=== PATIENT | female | born 1975 | race Caucasian/White ===

== ENCOUNTER → 2019-09-18 | Outpatient (CLI) | payer OTHER ==
[~2019-09-18] MED LIST: ACHYD1T PO; BIRTH CONTROL PO; CTLP20T PO; FEXO-14 PO; FEXO-45 PO; NITR-33 PO; NITR-65 PO; PHEN-640 PO; TMSL.4C PO; TRM50T PO
--- NOTE | 2019-09-18 11:10 | Diagnostic Imaging Report ---
EXAMINATION: Supine abdomen at 10:04 a.m. INDICATION: Left ureteral stone. FINDINGS: The previous exam of 09/22/2013 noted a few calcific densities overlying the inferior pole of the left kidney and a few linear irregular calcifications in the right upper quadrant. On this study the calcification of the right upper quadrant appeared similar to the prior exam. The calcifications overlying the left kidney may be somewhat larger in size. The largest of these calcifications now measures approximately 3.4 mm. Furthermore there is now a question of a 3 mm calcification lying just inferior to the left transverse process of L3. This could be within the left ureter. If further evaluation of this finding is desired, then CT would be recommended. No other pathological calcification is seen. There is some gas in both the large and small bowel in a nonspecific fashion. There is no evidence for bowel obstruction. As noted on the prior exam there is a fair amount of fecal material within the transverse colon and this does obscure both kidneys. The osseous structures are intact. The postsurgical changes involving the thoracolumbar spine seen previously are again evident. IMPRESSION: 1. The calcifications in the right upper quadrant and overlying the inferior pole of the left kidney seen previously are again evident. One of the calcifications overlying the inferior pole of the left kidney does seem larger. There is also now question of a calculus within the left ureter. Recommendations as above. 2. There is no acute abnormality noted otherwise. Dictated by: Dictated on workstation # [id number]
== END ==
LOC: RAD 09:46
PROVIDERS: ATTEND Urology
DX: N20.1 Calculus of ureter (principal); N28.89 Other specified disorders of kidney and ureter
CPT/HCPCS: 74018

== ENCOUNTER → 2019-09-28 | Outpatient (CLI) | payer OTHER ==
--- NOTE | 2019-09-28 16:32 | Diagnostic Imaging Report ---
REASON FOR EXAM: LT UPPER URETERAL AND RENAL STONES COMPARISON: 09/18/2019. TECHNIQUE: frontal supine view of the abdomen FINDINGS: There has been interval migration of the calculus within the left ureter which now appears to be in the distal ureter/UVJ. Previously visualized calculi within the left kidney appear more medial on today's exam, although this may be due to positioning. No evidence of bowel obstruction or large collections of free intraperitoneal air. A moderate amount of stool is seen in the colon. Fusion changes are noted in the thoracolumbar spine. IMPRESSION: 1. Interval migration of the calculus within the left ureter, now in the distal left ureter/left UVJ. Redemonstration of calculi in the left kidney which have a more medial appearance. This difference in position may be due to patient's positioning. Recommend follow-up as indicated. 2. Moderate amount of stool in the colon, which can be seen with constipation. Dictated by: Dictated on workstation # [id number]
== END ==
LOC: RAD 14:26
PROVIDERS: ATTEND Urology
DX: N20.1 Calculus of ureter (principal)
CPT/HCPCS: 74018

== ENCOUNTER 2019-09-29 09:56 | Outpatient (CLI) | payer OTHER ==
[~2019-09-29] VITALS: Ht 162.6 cm; Wt 54.5 kg
[~2019-09-29 09:56] MED LIST changes: -FEXO-45 PO; -NITR-65 PO; -PHEN-640 PO; -TRM50T PO
[2019-09-29] MEDS ORDERED: TMSL.4C PO (14:13)
[2019-09-29] MEDS ORDERED: FEXO-45 PO (14:13)
[2019-09-30] MEDS ORDERED: NITR-65 PO (09:51)
[2019-09-30] MEDS ORDERED: PHEN-640 PO (09:51)
[2019-09-30] MEDS ORDERED: TRM50T PO (09:51)
== END 2019-09-29 14:17 | disposition home or self-care (01) ==
LOC: PREOP 09:56
PROVIDERS: ATTEND Urology
DX: Z01.818 Encounter for other preprocedural examination (principal)

== ENCOUNTER 2019-09-30 06:18 | Day surgery (SDC) | payer OTHER ==
[~2019-09-30] VITALS: Ht 162.6 cm; Wt 54.5 kg
[2019-09-30] VITALS (11 sets, daily range): BP systolic 97–137; BP diastolic 67–100
[~2019-09-30 06:18] MED LIST changes: +FEXO-45 PO
[2019-09-30] MEDS ORDERED: cefTRIAXone FOR IV USE 1,000 MG in WATER (STERILE) FOR INJECTION 10 ML IV ONE (06:30)
[2019-09-30] MEDS ORDERED: FAMOTIDINE 20MG/2ML IV (PEPCID) ONE (06:53)
[2019-09-30] MEDS ORDERED: ROCURONIUM 10 MG/ML 5 ML SYRINGE IV ONE (06:55)
[2019-09-30] MEDS ORDERED: LIDOCAINE PF 2% 5 ML (XYLOCAINE) VIAL ONE (06:55)
[2019-09-30] MEDS ORDERED: proPOfol 200 MG/20 ML (DIPRIVAN) VIAL IV ONE (06:55)
[2019-09-30] MEDS ORDERED: ONDANSETRON 4 MG/2 ML (SDV) Z0FRAN ONE ×2 (06:55→07:29)
[2019-09-30] MEDS ORDERED: fentaNYL INJECTION 100 MCG/2 ML AMP ONE (06:56)
[2019-09-30] MEDS ORDERED: MIDAZOLAM 2 MG/2 ML (VERSED) VIAL ONE (06:56)
--- NOTE | 2019-09-30 06:56 | Progress Note-Pre Operative ---
Pre-Operative Progress Note H&P Reviewed The H&P was reviewed, patient examined and no changes noted. Date Seen by Provider: Sep 30, 2019 Time Seen by Provider: 06:56 Date H&P Reviewed: Sep 30, 2019 Time H&P Reviewed: 06:56 Pre-Operative Diagnosis: LT DISTAL AND RENAL STONES YASMINE DHALIWAL MD Sep 30, 2019 06:56
[2019-09-30] MEDS ORDERED: SEVOFLURANE (ULTANE) 15 ML INHAL SOLN ONE ×2 (06:57→07:28)
[2019-09-30] MEDS ORDERED: DEXAMETHASONE 10 MG/ML (DECADRON) 1 ML VIAL ONE (06:57)
[2019-09-30] MEDS: LACTATED RINGERS 1,000 ML IV PRN ×2 (06:57→07:49)
[2019-09-30] MEDS ORDERED: CATHETER FLUSH 10 ML SYR IV PRN (07:00)
--- NOTE | 2019-09-30 07:03 | Progress Note-Post Operative ---
Post-Operative Progess Note Surgeon (s)/Salary Manager (s) Surgeon YASMINE DHALIWAL MD Salary Manager: NONE Pre-Operative Diagnosis LT DISTAL AND RENAL STONES Post-Operative Diagnosis SAME Procedure & Operative Findings Date of Procedure 09/30/19 Procedure Performed/Findings LT URETEROSCOPY WITH STONE BASKET AND LITHOTRIPSY Anesthesia Type GENERAL Estimated Blood Loss Estimated blood loss (mL): NONE Specimens/Packing Specimens Removed NONE Packing: NONE YASMINE DHALIWAL MD Sep 30, 2019 07:03
--- NOTE | 2019-09-30 07:05 | Discharge Inst-Urology ---
Discharge Inst-Urology Reconcile Patient Problems Problems Reviewed?: Yes Final Diagnosis LT DISTAL AND RENAL STONES Patient Instructions/Follow Up Plan/Assessment/Instructions Please make appointment to been seen in office Wednesday 10/11, prior to it. Increase oral fluids for 48 hours and then as needed. Diet and Activity as tolerated. If questions or concerns contact your physician Or seek help at emergency department. YASMINE DHALIWAL MD Sep 30, 2019 07:05
[2019-09-30] MEDS ORDERED: FAMOTIDINE 20MG/2ML IV (PEPCID) IVP ONE (07:15)
--- NOTE | 2019-09-30 07:33 | Diagnostic Imaging Report ---
Indication: Nephrolithiasis KUB 6:51 AM There are small calcifications projecting over the inferior pole of left kidney. Bowel gas pattern is normal. The patient has a fusion rods in the thoracolumbar spine. IMPRESSION: Left nephrolithiasis Dictated by: Dictated on workstation # [id number]
[2019-09-30] MEDS ORDERED: NEOSTIGMINE 3 MG/3 ML VIAL ONE (07:44)
[2019-09-30] MEDS ORDERED: GLYCOPYRROLATE 0.2 MG/ML (ROBINUL) 2 ML VIAL ONE (07:44)
--- NOTE | 2019-09-30 07:59 | Diagnostic Imaging Report ---
Indication: Ureterolithiasis IMPRESSION: 22.1 seconds of fluoroscopy was used by Dr. Purcell in surgery during lithotripsy. Dictated by: Dictated on workstation # [id number]
[2019-09-30] MEDS ORDERED: ONDANSETRON 4 MG/2 ML (SDV) Z0FRAN IVP PRN (08:00)
[2019-09-30] MEDS ORDERED: fentaNYL INJECTION 100 MCG/2 ML AMP IVP ONE (08:00)
[2019-09-30] MEDS ORDERED: MEPERIDINE (DEMEROL) INJ 50 MG/ML IVP ONE (08:00)
[2019-09-30] MEDS ORDERED: PHENAZOPYRIDINE 100 MG (PYRIDIUM) TABLET ONE (09:20)
--- NOTE | 2019-09-30 09:23 | Anesthesia-General Post-Op ---
General Patient Condition Mental Status/LOC: Same as Preop Cardiovascular: Satisfactory Nausea/Vomiting: Absent Respiratory: Satisfactory Pain: Controlled Complications: Absent Post Op Complications Complications None Follow Up Care/Instructions Patient Instructions None needed. Anesthesia/Patient Condition Patient Condition Patient is doing well, no complaints, stable vital signs, no apparent adverse anesthesia problems. No complications reported per nursing. SRIDEVI WOOD CRNA Sep 30, 2019 09:22
[2019-09-30] MEDS ORDERED: PHENAZOPYRIDINE 100 MG (PYRIDIUM) TABLET PO ONE ×2 (09:30→12:45)
[2019-09-30] MEDS ORDERED: NITR-65 PO (09:51)
[2019-09-30] MEDS ORDERED: PHEN-640 PO (09:51)
[2019-09-30] MEDS ORDERED: TRM50T PO (09:51)
--- NOTE | 2019-09-30 12:28 | OPERATIVE REPORT ---
DATE OF SERVICE: 09/30/2019 PREOPERATIVE DIAGNOSES: 1. Left distal ureteral stone. 2. Left renal stones. POSTOPERATIVE DIAGNOSES: 1. Left distal ureteral stone. 2. Left renal stones. OPERATION PERFORMED: Left ureteroscopy with stone lithotripsy and basket. SURGEON: Justyn Dhaliwal MD ANESTHESIA: General. COMPLICATIONS: None. DESCRIPTION OF PROCEDURE: Under satisfactory general anesthesia, the patient in lithotomy position, genitalia were prepped and draped in the usual sterile fashion. Cystoscope was introduced under vision. The prostate, bladder was essentially normal except for very sluggish efflux on the left side. Using the foroblique lens, I dilated the left ureteral orifice intramural portion to the level of the stone to accommodate a 6.9 Spanish semi-rigid ureteroscope. Stone first was kind of impacted and then during manipulation, it was disimpacted so I elected to basket it in order not to lose it. However, realized that this may be a little bit too big for the basket, so I went ahead with the lithoclast, broke it, with a power of 5, completely fragmented the stone into very small fragments. I removed the ureteroscope, reinserted the cystoscope to empty the bladder. The patient tolerated the procedure and anesthesia well and was sent to recovery room in stable condition. PLAN: In 2 weeks when the machine is back here, we will go ahead and do ESWL on her left renal stone, which was in agreement with the patient preoperatively. Job ID: [id number] DocumentID: [id number] Dictated Date: 09/30/2019 07:59:58 Preparation Operator Date: 09/30/2019 12:27:17 Dictated By: JUSTYN DHALIWAL MD
== END 2019-09-30 11:25 | disposition home or self-care (01) ==
LOC: SDC 06:18
PROVIDERS: ATTEND Urology
DX: N20.2 Calculus of kidney with calculus of ureter (principal); K21.9 Gastro-esophageal reflux disease without esophagitis; Z79.899 Other long term (current) drug therapy; Z79.891 Long term (current) use of opiate analgesic
CPT/HCPCS: 74018; 84703; 87081

== ENCOUNTER → 2019-10-12 | Outpatient (CLI) | payer OTHER ==
[~2019-10-12] MED LIST changes: +NITR-65 PO; +PHEN-640 PO; +TRM50T PO
--- NOTE | 2019-10-12 14:18 | Diagnostic Imaging Report ---
INDICATION: History of left renal stone. TECHNIQUE: Single supine view of the abdomen 1:42 p.m. CORRELATION STUDY: 09/30/2019. FINDINGS: Moderate amount of overlying bowel gas and stool is present, obscuring detail. There are multiple small somewhat grouped calcifications in the central aspect of the left kidney again demonstrated. Right kidney is largely obscured by overlying stool. A previously noted small stone in the left hemipelvis is no longer visualized. Additional punctate stone off the right hemipelvis, stable. Partial visualization with extensive thoracolumbar spinal fixation hardware is present. IMPRESSION: 1. Left-sided nephrolithiasis is again demonstrated. An additional calcification previously demonstrated over the left hemipelvis is not visualized at follow-up assessment. Dictated by: Dictated on workstation # [id number]
== END ==
LOC: RAD 13:29
PROVIDERS: ATTEND Urology
DX: N20.0 Calculus of kidney (principal)
CPT/HCPCS: 74018

== ENCOUNTER → 2019-10-12 | Outpatient (CLI) | payer OTHER | END | disposition home or self-care (01) | LOC: PREOP 10-08 05:30 | PROVIDERS: ATTEND Urology | DX: Z01.818 Encounter for other preprocedural examination (principal) ==

== ENCOUNTER → 2020-05-24 | Outpatient (CLI) | payer OTHER ==
--- NOTE | 2020-05-24 19:23 | Diagnostic Imaging Report ---
EXAMINATION: Supine abdomen at 4:13 PM INDICATION: Kidney stones A single supine view of the abdomen was obtained. As noted on the prior exam of 10/12/2019 there are multiple small calculi overlying the inferior pole of the left kidney. Also as on the prior exam the right renal contour is obscured by bowel gas and fecal material. There is no other pathological calcification evident. There is no mass or organomegaly appreciated. The osseous structures are intact. The orthopedic fixation rods overlying the thoracolumbar junction and the surgical clips in the upper quadrant seen previously are again evident and no different. IMPRESSION: There continue to be a few small calculi overlying the inferior pole of the left kidney. There is no other pathological calcifications evident. There is no acute abnormality identified either. Dictated by: Dictated on workstation # [id number]
== END ==
LOC: RAD 15:54
PROVIDERS: ATTEND Urology
DX: N20.0 Calculus of kidney (principal)
CPT/HCPCS: 74018